=== PATIENT | male | born 1960 | race Caucasian/White ===

== ENCOUNTER 2019-06-12 14:34 | Emergency (ER) | payer SELFPAY ==
[~2019-06-12] VITALS: Ht 175.3 cm; Wt 92.4 kg
[~2019-06-12 14:34] MED LIST: LEVO175T2 PO; SAW450CA7 PO
[2019-06-12 14:42] VITALS: BP 161/87
[2019-06-12] MEDS ORDERED: naproxen 500mg tablet PO ONE (15:05)
== END 2019-06-12 15:26 | disposition home or self-care (01) ==
LOC: ER 14:35
DX: S06.0X9A Concussion with loss of consciousness of unspecified duration, initial encounter (principal); M25.552 Pain in left hip; M25.512 Pain in left shoulder; F12.90 Cannabis use, unspecified, uncomplicated; Z79.899 Other long term (current) drug therapy; W11.XXXA Fall on and from ladder, initial encounter; Y93.89 Activity, other specified; Y92.89 Other specified places as the place of occurrence of the external cause; Y99.0 Civilian activity done for income or pay
CPT/HCPCS: 99284